=== PATIENT | male | born 1985 | race Caucasian/White ===

== ENCOUNTER 2017-11-22 17:13 | Emergency (ER) | payer BC ==
[2017-11-22] MEDS ORDERED: Tetan/Diph/Pertus SYR(Tdap)* 0.5 ML SYR(BOOSTRIX) use SYR IM ONE (17:37)
[2017-11-22] MEDS ORDERED: Lidocaine 1% INJ* 10 MG/ML 30 ML SDV INJ ONE (17:55)
--- NOTE | 2017-11-22 18:01 | ED ---
Laceration/Wound HPI - HPI Summary HPI Summary: 32-year-old male presents with left thumb laceration today. 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 He states he has pain with range motion of his left thumb. He denies any numbness or tingling. He is left -handed. He states due to the pain he passed out. He denies any neck pain or any headache. Denies any nausea vomiting. He denies any chest pain or shortness breath. Denies any other injury. He is unsure when his last tetanus was. He has no medical conditions. - History of Current Complaint Stated Complaint: LT THUMB INJURY Time Seen by Provider: 11/22/17 17:38 Pain Intensity: 5 - Allergy/Home Medications Allergies/Adverse Reactions: Allergies Allergy/AdvReac Type Severity Reaction Status Date / Time amoxicillin Allergy Unknown Verified 11/22/17 17:15 Reaction Details cefaclor [From Ceclor] Allergy Unknown Verified 11/22/17 17:15 Reaction Details Home Medications: Home Medications LoraTADine TAB(NF) [Claritin 10 MG TAB(NF)] 10 mg PO DAILY PRN 11/22/17 [ History Confirmed 11/22/17] PMH/Surg Hx/FS Hx/Imm Hx Endocrine/Hematology History: Denies: Hx Diabetes, Hx Thyroid Disease Cardiovascular History: Denies: Hx Hypertension Respiratory History: Denies: Hx Asthma, Hx Chronic Obstructive Pulmonary Disease (COPD) GI History: Denies: Hx Ulcer - Immunization History Date of Tetanus Vaccine: within 10 years says patient Infectious Disease History: No Infectious Disease History: Denies: Hx Hepatitis, Hx Human Immunodeficiency Virus (HIV), Traveled Outside the [place] in Last 30 Days - Family History Known Family History: Positive: Diabetes - Social History Alcohol Use: None Substance Use Type: Reports: Marijuana Substance Use Comment - Amount & Last Used: today Smoking Status (MU): Heavy Every Day Tobacco Smoker Amount Used/How Often: 10 - 15 cigs per day Review of Systems Negative: Fever Negative: Chest Pain Negative: Shortness Of Breath Positive: Other - left thumb laceration All Other Systems Reviewed And Are Negative: Yes Physical Exam Triage Information Reviewed: Yes Vital Signs On Initial Exam: Initial Vitals Temp Pulse Resp BP Pulse Ox 96 F 58 16 136/71 96 11/22/17 17:15 11/22/17 17:15 11/22/17 17:15 11/22/17 17:15 11/22/17 17:15 Vital Signs Reviewed: Yes Appearance: Positive: Well-Appearing Skin: Positive: Warm, Dry, Other - 3cm superficial laceration left thumb Head/Face: Positive: Normal Head/Face Inspection Eyes: Positive: Normal, EOMI, KIMBERLEE, Conjunctiva Clear ENT: Positive: Normal ENT inspection, Pharynx normal, TMs normal Respiratory/Lung Sounds: Positive: Clear to Auscultation, Breath Sounds Present Cardiovascular: Positive: Normal, RRR Musculoskeletal: Positive: Strength/ROM Intact - left thumb with pain, Other - able to oppose all finger, good pulses, capillary refill<2 secs, tenderness over mcp left thumb Neurological: Positive: Sensory/Motor Intact, Alert, Oriented to Person Place, Time, CN Intact II-III Psychiatric: Positive: Normal Procedures - Splinting Location: left thumb Pre-Made Type: velcro Splint: thumb spica Pre-Proc Neuro Vasc Exam: normal Post-Proc Neuro Vasc Exam: normal - Laceration/Wound Repair 1 Location: Other - left thmb Description: Irregular Length, Depth and Shape: 3cm superficial Irrigated w/ Saline (ccs): 300 Laceration/Wound Explored: no foreign body removed Closure: Skin Adhesive, SteriStrips Diagnostics - Vital Signs Vital Signs Temp Pulse Resp BP Pulse Ox 11/22/17 17:15 96 F 58 16 136/71 96 - Laboratory Lab Statement: Any lab studies that have been ordered have been reviewed, and results considered in the medical decision making process. - Radiology thumb Xray Interpretation: Positive (See Comments) - IMPRESSION: LINEAR DEFECT OF THE BASE OF THE PROXIMAL PHALANX OF THE FIRST DIGIT SUGGESTIVE OF NONDISPLACED FRACTURE Radiology Interpretation Completed By: Radiologist Laceration Repair Course/Dx - Course Course Of Treatment: 32-year-old male presents with left thumb laceration today. 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 He states he has pain with range motion of his left thumb. He denies any numbness or tingling. He is left-handed. He states due to the pain he passed out. He denies any neck pain or any headache. Denies any nausea vomiting. He denies any chest pain or shortness breath. Denies any other injury. He is unsure when his last tetanus was. He has no medical conditions. On exam neurovascular intact. History 70 laceration to the MCP of the left thumb. Full range of motion of left thumb. gave tetanus. cleaned and placed glu via patient request. X-ray shows proximal phalanx fracture. Placed pre-made thumb spica splint. Patient understands agrees with plan. - Differential Dx Differental Diagnoses: Abrasion, Avulsion, Fracture, Laceration - Clinical Impression Provider Diagnoses: Laceration of left thumb, Fracture of proximal phalanx of left thumb Discharge - Sign-Out/Discharge Documenting (check all that apply): Discharge/Admit/Transfer - Discharge Plan Condition: Good Disposition: HOME Patient Education Materials: Finger Fracture (ED), Skin Adhesive Care (ED) Ref[place]: [facility] [place] [facility] [place]] Eugenio Naranjo MD [Medical Doctor] - Additional Instructions: Place ice on area, elevate Take Tylenol or ibuprofen for pain as needed every 6 hours Glue will fall off on own Avoid scrubbing area Leave splint on area Can follow up with primary or ortho Return to ED if develop any signs of infection or any new or worsening symptoms - Billing Disposition and Condition Condition: GOOD Disposition: HOME
--- NOTE | 2017-11-22 18:25 | RAD ---
HISTORY: Left thumb injury COMPARISONS: None VIEWS: 3, Frontal, lateral, and oblique views of the first digit of the left hand FINDINGS: BONE DENSITY: Normal. BONES: There is a linear defect in the ulnar aspect of the cortex of the base of the proximal phalanx of the first digit suggestive of a nondisplaced fracture JOINTS: There is no arthropathy. ALIGNMENT: There is no dislocation. SOFT TISSUES: Unremarkable. OTHER FINDINGS: None. IMPRESSION: LINEAR DEFECT OF THE BASE OF THE PROXIMAL PHALANX OF THE FIRST DIGIT SUGGESTIVE OF NONDISPLACED FRACTURE
[2017-11-22 18:51] VITALS: BP 145/82
== END 2017-11-22 18:50 | disposition home or self-care (01) ==
LOC: ED 17:13
DX: S61.012A Laceration without foreign body of left thumb without damage to nail, initial encounter (principal); S62.512A Displaced fracture of proximal phalanx of left thumb, initial encounter for closed fracture; W28.XXXA Contact with powered lawn mower, initial encounter; Y93.H2 Activity, gardening and landscaping; Y92.9 Unspecified place or not applicable; F17.200 Nicotine dependence, unspecified, uncomplicated; Z23 Encounter for immunization; Z88.3 Allergy status to other anti-infective agents
CPT/HCPCS: 12002; 90471; 90715; 99282